=== PATIENT | male | born 1950 | race Caucasian/White ===

== ENCOUNTER 2021-05-05 03:46 | Emergency (ER) | payer OTHER ==
[~2021-05-05] VITALS: Ht 172.7 cm; Wt 75.0 kg
[~2021-05-05 03:46] MED LIST: CLARITIN 1010 MG/TAB PO; VITAMIN D5000 IU PO
[2021-05-05 03:54] VITALS: TEMP 99.1
[2021-05-05 04:30] LABS: BASO # 0.1 K/mm3 (0.0-0.2); BASO % 0.4 % (0.0-2.0); EOS % 0.3 % (0.0-4.0); GRAN # 9.5 K/mm3 (1.4-6.5); GRAN % 76.4 % (42.2-75.2); HEMATOCRIT 40.6 % (42.0-52.0); LYMPH # 1.5 K/mm3 (1.2-3.4); LYMPH % 12.3 % (20.0-51.0); MEAN CELL VOLUME 84 fl (80.0-100.0); MEAN CORPUSCULAR HEMOGLOBIN 29 pg (27-31); MEAN CORPUSCULAR HGB CONC 35 g/dl (33.0-37.0); MEAN PLATELET VOLUME 8.8 fl (7.4-10.4); MONO # 1.3 K/mm3 (0.1-0.6); MONO % 10.3 % (1.7-9.3); PLATELET COUNT 564 K/mm3 (130-400); RED BLOOD COUNT 4.86 M/mm3 (4.20-5.60); REDCELL DISTRIBUTION WIDTH-CV 11.5 % (11.5-14.5)
[2021-05-05 04:39] LABS: COLLECTION METHOD CLEAN CATCH
[2021-05-05 04:51] LABS: ALBUMIN 2.5 gm/dL (3.4-4.8); BILIRUBIN,TOTAL 0.9 mg/dL (0.2-1.2); CALCIUM 8.9 mg/dL (8.4-10.2); CREATININE, serum 0.88 mg/dL (0.72-1.25); POTASSIUM 3.9 mmol/L (3.5-4.5); TOTAL PROTEIN 7.5 gm/dL (6.2-8.1)
[2021-05-05 04:56] LABS: TROPONIN-I 0.014 ng/mL (0.00-0.033)
[2021-05-05 05:06] LABS: MUCOUS Present (NOT PRESENT); PH 5 (5-8); SQUAMOUS EPITHELIAL 0-2 /hpf (0-10); URINE APPEARANCE Hazy (CLEAR/HAZY); URINE BACTERIA None Seen /hpf (NONE SEEN); URINE BILIRUBIN Negative (NEGATIVE); URINE BLOOD Negative (NEGATIVE); URINE COLOR Amber (YELLOW); URINE GLUCOSE 1+ (NEGATIVE); URINE KETONE Trace (NEGATIVE); URINE LEUKOCYTE ESTERASE Negative (NEGATIVE); URINE NITRATE Negative (NEGATIVE); URINE PROTEIN(semi-quant) 2+ (NEGATIVE); URINE RBC 0-2 /hpf (0-2)
[2021-05-05 07:47] VITALS: BP 140/84; PULSE 63
== END 2021-05-05 07:52 | disposition home or self-care (01) ==
LOC: COL.ER 03:46
PROVIDERS: Student in an Organized Health Care Education/Training Program
DX: K76.89 Other specified diseases of liver (principal); E87.1 Hypo-osmolality and hyponatremia
CPT/HCPCS: J7030; Q9967

== ENCOUNTER → 2021-05-08 | Outpatient (CLI) | payer OTHER | LOC: COL.RAD 07:14 | DX: R91.8 Other nonspecific abnormal finding of lung field (principal) | CPT/HCPCS: A9585 ==